=== PATIENT | male | born 1975 | race Caucasian/White ===

== ENCOUNTER 2022-06-16 07:06 | Emergency (ER) | payer BC ==
--- OUTSIDE RECORDS SUMMARY | 2022-06-16 07:09 | XMS REPORT | Continuity of Care Document ---
:1975 Author Organization [facility] t Address [address] [place] [address] Care Team Providers Name Role Phone Lab, [facility] Attending Clinician Unavailable Venkat Perry Attending Clinician VENKAT MILTON Attending Clinician Unavailable Doctor Unassigned, [place] Attending Clinician Unavailable Payers Payer Name Policy Type Policy Number Effective Date Expiration Date S ource Problems This patient has no known problems. Allergies, Adverse Reactions, Alerts Allergy Allergy Status Severity Reaction(s) Onset Inactive Treating Comm ents Source Name Type Date Date Clinician NO KNOWN Drug Active Univers ALLERGIE Class it[facility] of [facility] Social History Social Habit Start Date Stop Date Quantity Comments Source Sex Assigned At Uni versity [facility] Smoking Status Start Date Stop Date Source Unknown if ever smoked Universit y [facility] Medications This patient has no known medications. Procedures Procedure Date / Time Performed Performing Clinician Sour e COVID-19 (PCR 2020-05-11 15:07:00 Venkat Milton [place] MOLECULAR TESTING) Medical [facility] h Encounters Start End Encounter Admission Attending Care Care Encounter Source Date/Time Date/Time Type Type Clinicians Facility Department ID 2020-05-11 2020-05-11 Laboratory Lab, [facility] I [facility] [id number] Univers 10:04:08 12:19:37 Only Venkat Milton [id number] [facility] [id number] Armin as [place] [phone] Id dical [address] Office Building One 2020-05-11 2020-05-11 Outpatient R [facility] [id number] Univers 10:20:00 10:20:00 [id number] [facility]11 2020-05-11 [id number] Univers 10:20:00 10:20:00 VENKAT byarraadriana [facility] 2020-05-11 2020-05-11 Letter Doctor QUYNH [id number] Univers 00:00:00 00:00:00 (Out) Unassigned, DURGA [id number] ity of [place] [facility] [id number] [facility] as [phone] [address] 2020-05-09 2020-05-09 Outpatient Debby MILTON [facility] [id number] Univers 09:20:00 09:20:00 VENKAT haley [facility] Results Test Description Test Time Test Comments Results Result Comments Source COVID-19 (PCR MOLECULAR TESTING) 2020-05-12 06:41:00 Test Item Value Reference Range Interpretation Comme nts SARS-CoV-2 PCR (test code = Not Detected Not Detected 23845-0) JAS (test code = JAS) [facility] [employer] SARS-CoV-2 Assay is a nucleic acid amplification test intended for the qualitative detection of RNA from SARS-CoV-2 from nasopharyngeal ([employer]) specimens. ?It is used under Emergency Use Authorization (EUA) by FDA. A positive result is indicative of the presence of SARS-CoV-2 RNA. ?Clinical correlation with patient history and other diagnostic information is necessary to determine patient infection status. A negative (Not Detected) result does not preclude SARS-CoV-2 infection. ?Clinical correlation with patient history and other diagnostic information should be used in patient management decisions. Invalid: Unable to generate a valid test result on this specimen. ?Please submit a new specimen for repeat testing if clinically indicated. Lab Interpretation (test code = Normal 50200-6) [facility]
[2022-06-16 07:36] LABS: Absolute Lymphocytes (CBC) 2.1 K/uL (0.7-4.9); Hematocrit 49.6 % (39.6-49.0); Lymphocytes % 24.6 % (15.3-44.8); MCV 89.5 fL (80-100); MPV 8.4 fL (7.6-11.3); RBC Red Blood Cell Count 5.54 M/uL (4.33-5.43)
[2022-06-16] MEDS ORDERED: LEVALBUTEROL 1.25 MG/3 ML NEB ONE (07:40)
--- NOTE | 2022-06-16 07:52 | RAD REPORT ---
EXAM DESCRIPTION: Olivier Single View06/16/2022 7:32 am CLINICAL HISTORY: sob COMPARISON: 2010 FINDINGS: The lungs are moderately hyperaerated. The lungs appear clear of acute infiltrate. The heart is normal size IMPRESSION: No acute abnormalities displayed
[2022-06-16] MEDS ORDERED: METHYLPREDNISOLONE 125 MG INJ ONE (08:00)
[2022-06-16 08:34] LABS: Potassium 3.7 mmol/L (3.5-5.1); Troponin High Sensitivity 3.6 pg/mL (<58.9)
[2022-06-16 08:49] LABS: Blood Morphology Comment NOT SEEN (NOT SEEN); Platelet Estimate ADEQ
--- NOTE | 2022-06-16 09:12 | RAD REPORT ---
EXAM DESCRIPTION: CT - Chest For Pe Angio - 06/16/2022 8:49 am CLINICAL HISTORY: sob COMPARISON: None. TECHNIQUE: Dynamically enhanced axial 3 mm thick images of the chest were obtained during administra tion of <100> mL Isovue 370 IV contrast. Coronal and oblique reconstruction images were generated and reviewed. Exam utilizes a protocol for optimal evaluation of pulmonary arterial tree. Maximum intensity projections 3D imaging was utilized All CT scans are performed using dose optimization technique as appropriate and may include automated exposure control or mA/KV adjustment according to patient size. FINDINGS: A pulmonary embolus is not seen. The root of the thoracic aorta has an AP diameter of 3.6 centimeters A pleural effusion is not seen. A pericardial effusion is not seen. A lung consolidation is not present.Blebs are present within the upper lobes. Lungs are hyperaerated IMPRESSION: Negative for a pulmonary embolism. Paraseptal emphysema
--- NOTE | 2022-06-16 09:32 | EDPHYS ---
Physician Documentation [facility] Name: Ron Singh Jr Age: 46 yrs Sex: Male : 1975 Arrival Date: 06/16/2022 Time: 07:13 Bed 5 Private MD: ED Physician Ashkan Bauer HPI: 06/16 07:34 This 46 yrs old Male presents to ER via Wheelchair with complaints of Shortness Of kdr Breath. 07:34 The patient has shortness of breath at rest, with light activity. Onset: The kdr symptoms/episode began/occurred gradually, 2 week(s) ago. Duration: The symptoms are continuous, and are steadily getting worse. The patient's shortness of breath is aggravated by coughing, exertion, light activity, talking, walking. Patient was seen at a local urgent care about 2 weeks ago and put on a Z-Stephen. Since then he is continue to have worsening shortness of breath. He denies fever. He is got a productive cough with clear phlegm. Patient is otherwise nontoxic-appearing at this time. Associated signs and symptoms: The patient has no apparent associated signs or symptoms. Severity of symptoms: At their worst the symptoms were mild moderate in the emergency department the symptoms are unchanged. Historical: - Allergies: 07:17 No Known Allergies; kl - Home Meds: 07:17 None [Active]; kl - PMHx: 07:17 None; kl - PSHx: 07:17 None; kl - Immunization history:: Adult Immunizations up to date, Client reports receiving the 1st dose of the Covid vaccine. - Social history:: Smoking status: Patient reports the use of cigarette tobacco products, smokes one-half pack cigarettes per day. ROS: 07:36 Constitutional: Negative for fever, chills, and weight loss, Eyes: Negative for injury, kdr pain, redness, and discharge, ENT: Negative for injury, pain, and discharge, Neck: Negative for injury, pain, and swelling, Cardiovascular: Negative for chest pain, palpitations, and edema, Abdomen/GI: Negative for abdominal pain, nausea, vomiting, diarrhea, and constipation, Back: Negative for injury and pain, : Negative for injury, bleeding, discharge, and swelling, MS/Extremity: Negative for injury and deformity, Skin: Negative for injury, rash, and discoloration, Neuro: Negative for headache, weakness, numbness, tingling, and seizure activity. Psych: Negative for depression, anxiety, suicide ideation, homicidal ideation, and hallucinations, Allergy/Immunology: Negative for hives, rash, and allergies, Endocrine: Negative for neck swelling, polydipsia, polyuria, polyphagia, and marked weight changes, Hematologic/Lymphatic: Negative for swollen nodes, abnormal bleeding, and unusual bruising. 07:36 Respiratory: Positive for cough, with clear sputum, dyspnea on exertion, shortness of breath, wheezing, Negative for hemoptysis, orthopnea, pleurisy. Exam: 07:36 Constitutional: This is a well developed, well nourished patient who is awake, alert, kdr and in no acute distress. Head/Face: Normocephalic, atraumatic. Eyes: Pupils equal round and reactive to light, extra-ocular motions intact. Lids and lashes normal. Conjunctiva and sclera are non-icteric and not injected. Cornea within normal limits. Periorbital areas with no swelling, redness, or edema. ENT: Nares patent. No nasal discharge, no septal abnormalities noted. Tympanic membranes are normal and external auditory canals are clear. Oropharynx with no redness, swelling, or masses, exudates, or evidence of obstruction, uvula midline. Mucous membranes moist. Neck: Trachea midline, no thyromegaly or masses palpated, and no cervical lymphadenopathy. Supple, full range of motion without nuchal rigidity, or vertebral point tenderness. No Meningismus. Chest/axilla: Normal chest wall appearance and motion. Nontender with no deformity. No lesions are appreciated. Cardiovascular: Regular rate and rhythm with a normal S1 and S2. No gallops, murmurs, or rubs. Normal PMI, no JVD. No pulse deficits. Abdomen/GI: Soft, non-tender, with normal bowel sounds. No distension or tympany. No guarding or rebound. No evidence of tenderness throughout. Back: No spinal tenderness. No costovertebral tenderness. Full range of motion. Skin: Warm, dry with normal turgor. Normal color with no rashes, no lesions, and no evidence of cellulitis. MS/ Extremity: Pulses equal, no cyanosis. Neurovascular intact. Full, normal range of motion. Neuro: Awake and alert, GCS 15, oriented to person, place, time, and situation. Cranial nerves II-XII grossly intact. Motor strength 5/5 in all extremities. Sensory grossly intact. Cerebellar exam normal. Normal gait. Psych: Awake, alert, with orientation to person, place and time. Behavior, mood, and affect are within normal limits. 07:36 Respiratory: the patient does not display signs of respiratory distress, Respirations: normal, no acute changes, that is moderate is noted, Breath sounds: rhonchi, stridor, is not appreciated, + upper airway congestion. wheezing: that is mild. 07:38 ECG was reviewed by the Attending Physician. kdr Vital Signs: 07:15 BP 143 / 91; Pulse 100; Resp 22; Temp 98.2(TE); Pulse Ox 84% on R/A; Weight 72.57 kg kl (R); Height 5 ft. 4 in. (162.56 cm); Pain 0/10; 07:44 BP 114 / 90; Pulse 92; Resp 28; Temp 98.6; Pulse Ox 94% on 4 lpm NC; tp1 09:03 BP 115 / 77; Pulse 81; Resp 19; Pulse Ox 98% on 2 lpm NC; tp1 07:15 Body Mass Index 27.46 (72.57 kg, 162.56 cm) kl MDM: 09:32 Patient medically screened. kdr 09:59 Data reviewed: vital signs, nurses notes, lab test result(s), radiologic studies. kdr Counseling: I had a detailed discussion with the patient and/or guardian regarding: the historical points, exam findings, and any diagnostic results supporting the discharge/admit diagnosis, lab results, radiology results, the need for outpatient follow up. 06/16 07:15 Order name: Basic Metabolic Panel; Complete Time: 09:13 kdr 06/16 07:15 Order name: CBC with Diff; Complete Time: 09:13 kdr 06/16 07:15 Order name: Troponin HS; Complete Time: 09:13 kdr 06/16 07:15 Order name: XRAY Chest (1 view); Complete Time: 08:20 kdr 06/16 07:44 Order name: Manual Differential; Complete Time: 09:13 EDMS 06/16 07:45 Order name: SARS-COV-2 RT PCR (Document "Date of Onset" if Symptomatic); Complete Time: vg1 09:06/16 07:15 Order name: EKG; Complete Time: 07:16 kdr 06/16 07:15 Order name: Cardiac monitoring; Complete Time: 07:34 kdr 06/16 07:15 Order name: EKG - Nurse/Tech; Complete Time: 07:38 kdr 06/16 07:15 Order name: IV Saline Lock; Complete Time: 07:34 kdr 06/16 07:15 Order name: Labs collected and sent; Complete Time: 07:35 kdr 06/16 08:22 Order name: CT Chest For PE Angio; Complete Time: 09:25 kdr 06/16 07:15 Order name: O2 Per Protocol; Complete Time: 07:34 kdr 06/16 07:15 Order name: O2 Sat Monitoring; Complete Time: 07:34 kdr 06/16 07:42 Order name: Labs - recollect needed: recollect chemistries; Complete Time: 08:03 eb 06/16 09:26 Order name: Misc. Order: Remove oxygen and ambulate patient at recording vital signs kdr and lowest oxygen saturation ; Complete Time: 09:33 EC:38 Rate is 90 beats/min. Rhythm is regular, Sinus Rhythm with No ectopy. QRS [place] is kdr Normal. NH interval is normal. QRS interval is normal. QT interval is normal. Clinical impression: NSR w/ Non-specific ST/T Changes. Administered Medications: 07:34 Drug: Xopenex (levalbuterol) (3) 1.25 mg Route: Inhalation; tp1 08:05 Follow up: Response: Marked relief of symptoms tp1 07:50 Drug: SOLU-Medrol (methylPrednisoLONE) 125 mg Route: IVP; Site: right forearm; tp1 09:06 Follow up: Response: No adverse reaction tp1 Disposition Summary: 06/16/22 09:32 Discharge Ordered Location: Home kdr Problem: new kdr Symptoms: have improved kdr Condition: Stable kdr Diagnosis - Emphysema, unspecified kdr - Shortness of breath kdr Followup: kdr - With: Private Physician - When: 2 - 3 days - Reason: If symptoms return, Further diagnostic work-up, Recheck today's complaints, Continuance of care, Re-evaluation by your physician Discharge Instructions: - Discharge Summary Sheet kdr - Chronic Obstructive Pulmonary Disease kdr - How to Use a Metered Dose Inhaler kdr - Shortness of Breath, Adult, [id number] kdr - Cough, Adult, [id number] kdr Forms: - Medication Reconciliation Form kdr - Thank You Letter kdr Prescriptions: - albuterol sulfate 90 mcg/actuation Inhalation HFA aerosol inhaler - inhale 2 puff by INHALATION route every 4 hours As needed; 2 Cartridge; kdr Refills: 0, Product Selection Permitted - Tessalon Perles 100 mg Oral Capsule - take 1 capsule by ORAL route every 8 hours As needed; 15 capsule; Refills: 0, kdr Product Selection Permitted - Medrol (Stephen) 4 mg Oral Tablets, Dose Pack - take 1 tablet by ORAL route as directed - follow package instructions; 1 kdr packet; Refills: 0, Product Selection Permitted Signatures: Dispatcher [employer] Irene Olson RN RN kl Ashkan Bauer MD MD kdr Botello, Elizabeth eb Parker, Tiffany, RN RN tp1
--- NOTE | 2022-06-16 09:32 | ER ---
Nurse's Notes [facility] Name: Ron Singh Jr Age: 46 yrs Sex: Male : 1975 Arrival Date: 06/16/2022 Time: 07:13 Bed 5 Private MD: Diagnosis: Emphysema, unspecified;Shortness of breath Presentation: 06/16 07:15 Chief complaint: Patient states: I have been having a cough and shortness of breath for kl about two weeks. I went to urgent care and they gave me an inhaler but it isnt working. Coronavirus screen: Client presents with at least one sign or symptom that may indicate coronavirus-19. The client reports previous COVID testing was negative. Date of collection: June 01, 2022. Ebola Screen: No symptoms or risks identified at this time. Initial Sepsis Screen: Does the patient meet any 2 criteria? RR > 20 per min. HR > 90 bpm. Does the patient have a suspected source of infection? No. Patient's initial sepsis screen is negative. Risk Assessment: Do you want to hurt yourself or someone else? Patient reports no desire to harm self or others. Onset of symptoms was June 01, 2022. 07:15 Method Of Arrival: Wheelchair 07:15 Acuity: KUMAR 3 kl Triage Assessment: 07:17 General: Appears in no apparent distress. uncomfortable, Behavior is calm, cooperative, kl appropriate for age. Pain: Denies pain. EENT: No deficits noted. No signs and/or symptoms were reported regarding the EENT system. Neuro: No deficits noted. Cardiovascular: Chest pain is denied. Respiratory: Reports shortness of breath at rest on exertion cough that is productive, Airway is patent Respiratory effort is even, unlabored, Respiratory pattern is tachypnea Breath sounds are clear bilaterally. the patient has moderate shortness of breath. GI: No deficits noted. No signs and/or symptoms were reported involving the gastrointestinal system. : No deficits noted. No signs and/or symptoms were reported regarding the genitourinary system. Derm: No deficits noted. No signs and/or symptoms reported regarding the dermatologic system. Musculoskeletal: No deficits noted. No signs and/or symptoms reported regarding the musculoskeletal system. Historical: - Allergies: 07:17 No Known Allergies; kl - Home Meds: 07:17 None [Active]; kl - PMHx: 07:17 None; kl - PSHx: 07:17 None; kl - Immunization history:: Adult Immunizations up to date, Client reports receiving the 1st dose of the Covid vaccine. - Social history:: Smoking status: Patient reports the use of cigarette tobacco products, smokes one-half pack cigarettes per day. Screenin:45 Abuse screen: Denies threats or abuse. Denies injuries from another. Nutritional tp1 screening: No deficits noted. Tuberculosis screening: No symptoms or risk factors identified. Fall Risk No fall in past 12 months (0 pts). No secondary diagnosis (0 pts). IV access (20 points). Ambulatory Aid- None/Bed Rest/Nurse Assist (0 pts). Gait- Normal/Bed Rest/Wheelchair (0 pts) Mental Status- Oriented to own ability (0 pts). Total Cardenas Fall Scale indicates No Risk (0-24 pts). Assessment: 07:15 General: Appears in no apparent distress. comfortable, Behavior is calm, cooperative, tp1 On 2L O2 via NC \\T\\ 88%, O2 increased to 4L via NC \\T\\ 91%. Pain: Denies pain. Neuro: Level of Consciousness is awake, alert, obeys commands, Oriented to person, place, time, situation. Cardiovascular: Denies chest pain, Capillary refill < 3 seconds in bilateral fingers Patient's skin is warm and dry. Respiratory: Reports shortness of breath at rest cough that is productive, Airway is patent Respiratory effort is even, unlabored, Breath sounds with wheezes bilaterally. Onset: The symptoms/episode began/occurred two weeks ago. GI: Abdomen is flat, non-distended, Patient currently denies nausea, vomiting. : No signs and/or symptoms were reported regarding the genitourinary system. EENT: No signs and/or symptoms were reported regarding the EENT system. Derm: Skin is pink, warm \\T\\ dry. Musculoskeletal: Circulation, motion, and sensation intact. 08:02 Reassessment:. Reassessment: O2 currently \\T\\ 98%, O2 decreased to 2L via NC, O2 \\T\\ 96%, tp 1 RR 24. Respiratory: Respiratory effort is even, unlabored. 08:13 Reassessment: O2 currently \\T\\ 91% on 2L via NC, RR 15. tp1 08:40 Reassessment: Patient appears in no apparent distress at this time. Patient and/or tp1 family updated on plan of care and expected duration. Pain level reassessed. Patient is alert, oriented x 3, equal unlabored respirations, skin warm/dry/pink. 08:41 Reassessment: escorted to CT via wheelchair by [employer]. tp1 08:54 Reassessment: returned from CT. tp1 09:00 Reassessment: states "feeling much better". Respiratory: Respiratory effort is even, tp1 unlabored, Breath sounds are clear bilaterally. Denies shortness of breath. 09:31 Reassessment: received VO from DR. Bauer to ambulate PT to check status of SOB. PT tp1 ambulated down douglas and denied SOB. O2 \\T\\ 91% RA, HR 99. Vital Signs: 07:15 BP 143 / 91; Pulse 100; Resp 22; Temp 98.2(TE); Pulse Ox 84% on R/A; Weight 72.57 kg kl (R); Height 5 ft. 4 in. (162.56 cm); Pain 0/10; 07:44 BP 114 / 90; Pulse 92; Resp 28; Temp 98.6; Pulse Ox 94% on 4 lpm NC; tp1 09:03 BP 115 / 77; Pulse 81; Resp 19; Pulse Ox 98% on 2 lpm NC; tp1 07:15 Body Mass Index 27.46 (72.57 kg, 162.56 cm) ED Course: 07:13 Patient arrived in ED. tp1 07:14 Ashkan Bauer MD is Attending Physician. kdr 07:17 Triage completed. kl 07:17 Arm band placed on right wrist. kl 07:18 Patient has correct armband on for positive identification. Placed in gown. Bed in low tp1 position. Call light in reach. Client placed on continuous cardiac and pulse oximetry monitoring. NIBP monitoring applied. Warm blanket given. 07:27 Inserted saline lock: 20 gauge in right forearm, using aseptic technique. Blood tp1 collected. 07:33 XRAY Chest (1 view) In Process Unspecified. EDMS 07:34 Lucía Card, RN is Primary Nurse. tp1 07:40 EKG done, by ED staff. tp1 08:51 CT Chest For PE Angio In Process Unspecified. EDMS 09:06 No provider procedures requiring assistance completed. tp1 09:57 IV discontinued, intact, bleeding controlled, No redness/swelling at site. Pressure tp1 dressing applied. Administered Medications: 07:34 Drug: Xopenex (levalbuterol) (3) 1.25 mg Route: Inhalation; tp1 08:05 Follow up: Response: Marked relief of symptoms tp1 07:50 Drug: SOLU-Medrol (methylPrednisoLONE) 125 mg Route: IVP; Site: right forearm; tp1 09:06 Follow up: Response: No adverse reaction tp1 Medication: 07:44 VIS not applicable for this client. tp1 Outcome: 09:32 Discharge ordered by . kdr 09:57 Discharged to home ambulatory. tp1 09:57 Condition: good 09:57 Discharge instructions given to patient, Instructed on discharge instructions, follow up and referral plans. medication usage, Demonstrated understanding of instructions, follow-up care, medications, Prescriptions given X 3. 09:58 Patient left the ED. tp1 Signatures: Dispatcher [employer] EDMS Irene Mann RN RN kl Rittger, Kevin, MD MD kdr Parker, Tiffany, RN RN tp1 Corrections: (The following items were deleted from the chart) :44 07:35 General: Appears in no apparent distress. comfortable, Behavior is calm, tp1 cooperative, tp1 :44 07:35 Pain: Denies pain. tp1 tp1 :44 07:35 Neuro: Level of Consciousness is awake, alert, obeys commands, Oriented to tp1 person, place, time, situation, tp1 :44 07:35 Cardiovascular: Denies chest pain, Capillary refill < 3 seconds in bilateral tp1 fingers Patient's skin is warm and dry. tp1 :44 07:35 Respiratory: Reports shortness of breath at rest cough that is productive, Airway tp1 is patent Respiratory effort is even, unlabored, Breath sounds with wheezes bilaterally. Onset: The symptoms/episode began/occurred two weeks ago, tp1 :44 07:35 GI: Abdomen is flat, non-distended, Patient currently denies nausea, vomiting, tp1tp1 :44 07:35 : No signs and/or symptoms were reported regarding the genitourinary system. tp1tp1 :44 07:35 EENT: No signs and/or symptoms were reported regarding the EENT system. tp1 tp1 07:35 Derm: Skin is pink, warm \\T\\ dry. tp1 tp1 44 07:35 Musculoskeletal: Circulation, motion, and sensation intact. tp1 tp1 08:13 08:02 Reassessment: O2 98%, O2 decreased to 2L via NC O2 96%, RR 24 tp1 tp1
[2022-06-16 10:30] VITALS: TEMP 98.6
[2022-06-16 10:32] VITALS: BP 115/77; O2SAT 98
--- NOTE | 2022-06-17 14:33 | EKG ---
Test Date: 2022-06-16 Test Time: 07:38:05 Nut Packer: GUS MEASUREMENT RESULTS: Intervals: Rate: 90 FL: 166 QRSD: 92 QT: 346 QTc: 423 [place]: P: 78 FL: 166 QRS: 83 T: 77 INTERPRETIVE STATEMENTS: Normal sinus rhythm Right atrial enlargement Borderline ECG No previous ECG available for comparison Electronically Signed On 06-17-22 14:30:47 CDT by Cyrus Simental
== END 2022-06-16 09:58 | disposition home or self-care (01) ==
LOC: ER 07:06
DX: J43.9 Emphysema, unspecified (principal); F17.210 Nicotine dependence, cigarettes, uncomplicated; Z20.822 Contact with and (suspected) exposure to COVID-19
CPT/HCPCS: 93005; 85025; 80048; 36415; 84484; 71275; 71045; 96374; 99284; U0003; Q9967; J7614; J2930

== ENCOUNTER 2024-03-27 17:06 | Emergency (ER) | payer BC ==
--- OUTSIDE RECORDS SUMMARY | 2024-03-27 17:09 | XMS REPORT | Continuity of Care Document ---
Author Name Unknown Address [address] [facility] [address] [id number] [facility] thconnect Address [address] [facility] [place] [address] Care Team Providers Care Track Supervisor Name Role Phone Lab, Adc Fam Pob I Attending Clinician Unavailab Venkat Goodson Attending Clinician VENKAT BARTLETT Attending Clinician Unavailable Doctor Unassigned, [place] Attending Clinician U navailable Payers Payer Name Policy Type Policy Number Effective Date Expirati on Date Source Allergies, Adverse Reactions, Alerts Allergy Name Allergy Type Status Severity Reaction(s) Onset Date Inactive Date Treating Clinician Comments Source NO KNOWN ALLERGIE S Drug Class Active [facility] Social History Social Habit Start Date Stop Date Quantity Comments Source Sex Assigned At [facility] Smoking Status Start Date Stop Date Source Unknown if ever smoked [facility] Procedures Procedure Date / Time Performed Performing Clinicia n Source COVID-19 (PCR MOLECULAR TESTING) 2020-05-11 15:07:00 Venkat Bartlett [facility] Encounters Start Date/Time End Date/Time Encounter Type Admission Type Attending Clinicians Care Facility Care Department Encounter ID Source 2020-05-11 10:04:08 2020-05-11 12:19:37 Laboratory Only Lab, Adc Fam Pob I Venkat Bartlett [facility] [id number] [facility] 2020-05-11 10:20:00 2020-05-11 10:20:00 Outpatient R VENKAT BARTLETT [facility] [id number] [facility] 2020-05-11 00:00:00 2020-05-11 00:00:00 Letter (Out) Doctor Unassigned, [place] [facility] [id number] [facility] 2020-05-09 09:20:00 2020-05-09 09:20:00 Outpatient VENKAT TRAVIS [facility] [id number] [facility] Results Test Description Test Time Test Comments Results Result Co mments Source [facility]
[2024-03-27] MEDS ORDERED: TDAP (DIPHTH,PERTUSS(ACELL),TET VAC) 0.5 ML VIAL IMVAC ONE (17:44)
--- NOTE | 2024-03-27 17:49 | EDPHYS ---
Physician Documentation [facility] Name: Ron Singh Jr Age: 48 yrs Sex: Male : 1975 Arrival Date: 03/27/2024 Time: 17:06 Bed 12 Private MD: ED Physician Koko Conte HPI: 03/27 17:51 This 48 yrs old Male presents to ER via Ambulatory with complaints of Laceration To kb Hand. 17:51 Pt is a 48 year old male who accidentally cut the first web spacing of left hand on an kb ehsan wrench at 1030 this morning. . Historical: - Allergies: 17:23 No Known Allergies; hb - PMHx: 17:23 None; hb - PSHx: 17:23 Hernia Repair; hb - Immunization history:: Adult Immunizations up to date. - Infectious Disease History:: Denies. - Social history:: Smoking status: Patient reports the use of cigarette tobacco products, smokes one pack cigarettes per day. ROS: 17:49 Constitutional: As per HPI kb Exam: 17:49 Constitutional: This is a well developed, well nourished patient who is awake, alert, kb and in no acute distress. Head/Face: Normocephalic, atraumatic. ENT: Moist Mucous membranes Cardiovascular: Regular rate Respiratory: Respirations even and unlabored. No increased work of breathing. Talking in full sentences MS/ Extremity: Pulses equal, no cyanosis. Neurovascular intact. Full, normal range of motion. Neuro: Awake and alert, GCS 15, oriented to person, place, time, and situation. Moves all extremities. Normal gait. 17:49 Skin: injury, laceration(s), the wound is approximately 1 cm(s), of the Left first web space, that can be described as clean, no foreign body, irregular, without bleeding, Vital Signs: 17:22 BP 124 / 83; Pulse 78; Resp 16; Temp 97.1; Pulse Ox 100% ; Weight 71.67 kg; Height 6 hb ft. 4 in. ; Pain 0/10; 18:25 BP 129 / 78; Pulse 78; Resp 18; Temp 99; Pulse Ox 97% ; Pain 0/10; kb3 17:22 Body Mass Index 19.23 (71.67 kg, 193.04 cm) hb 17:22 Pain Scale: Adult hb 18:25 Pain Scale: Adult kb3 Laceration: 17:50 Wound Repair of 1cm ( 0.4in ) subcutaneous laceration to Left first web space. kb Irregularly shaped.. Skin/tissue flap noted.. Distal neuro/vascular/tendon intact. Anesthesia: Wound infiltrated with 1 mls of 1% lidocaine. Wound prep: Extensive cleansing with hibiclenz by me, Wound irrigation with saline by me. Skin closed with 2 4-0 Prolene using simple sutures and sterile technique. Patient tolerated well. MDM: 17:12 Patient medically screened. kb 17:50 Differential diagnosis: superficial laceration, tendon injury, vascular injury. Data kb reviewed: vital signs, nurses notes. Test considered but Not performed: X-ray: hand xray considered but pt has full ROM without pain, laceration is superficial. Counseling: I had a detailed discussion with the patient and/or guardian regarding the historical points, exam findings, and any diagnostic results supporting the discharge/admit diagnosis, the need for outpatient follow up, a family practitioner, to return to the emergency department if symptoms worsen or persist or if there are any questions or concerns that arise at home. 03/27 17:17 Order name: Dressing - Wound; Complete Time: 17:27 kb 03/27 17:17 Order name: Gloves, Sterile; Complete Time: 17:27 kb 03/27 17:17 Order name: Prolene, Sutures; Complete Time: 17:27 kb 03/27 17:17 Order name: Setup Suture Tray; Complete Time: 17:27 kb Administered Medications: 17:27 Drug: Lidocaine Infiltration (1 %) 1 vials 5 ml Infiltration once; to bedside Volume: 5 bp ml; Route: Infiltration; 18:14 Follow up: Response: No adverse reaction; Pain is decreased kb3 18:14 Drug: Boostrix Tdap IM 0.5 ml IM once; as a single dose Route: IM; Site: left deltoid; kb3 18:14 Follow up: Response: No adverse reaction kb3 Disposition Summary: 03/27/24 17:49 Discharge Ordered Notes: Location: Home kb Condition: Stable kb Diagnosis - Laceration without foreign body of left hand kb Followup: kb - With: Emergency Department - When: As needed - Reason: Worsening of condition Followup: kb - With: Private Physician - When: 2 - 3 days - Reason: Recheck today's complaints, Continuance of care, Re-evaluation by your physician Discharge Instructions: - Discharge Summary Sheet kb - Laceration Care, Adult, [id number] kb Forms: - Work release form kb - Medication Reconciliation Form kb - Antibiotic Education kb - Prescription Opioid Use kb - Patient Portal Instructions kb - Leadership Thank You Letter kb Addendum: 03/29/2024 14:18 I was immediately available for consultation during this patient's visit. I did not e c2 personally see the patient or discuss the patient with the BRENNEN. . Signatures: Iliana Shukla, DRIER AND EVAPORATOR OPERATOR-C DRIER AND EVAPORATOR OPERATOR-Ckb Bibi Bell, RN RN Leon Ferguson RN RN bp Jo Reyna RN RN kb3 Koko Conte MD MD ec2
--- NOTE | 2024-03-27 17:49 | ER ---
Nurse's Notes [facility] Name: Ron Singh Jr Age: 48 yrs Sex: Male : 1975 Arrival Date: 03/27/2024 Time: 17:06 Bed 12 Private MD: Diagnosis: Laceration without foreign body of left hand Presentation: 03/27 17:22 Chief complaint: Puncture to base of left thumb from ehsan wrench this morning. Not hb bleeding. Coronavirus screen: At this time, the client does not indicate any symptoms associated with coronavirus-19. Ebola Screen: No symptoms or risks identified at this time. Complicating Factors: There are no complicating factors for this patient. Initial Sepsis Screen: Does the patient meet any 2 criteria? No. Patient's initial sepsis screen is negative. Does the patient have a suspected source of infection? No. Patient's initial sepsis screen is negative. Risk Assessment: Do you want to hurt yourself or someone else? Patient reports no desire to harm self or others. Onset of symptoms was March 27, 2024. 17:22 Method Of Arrival: Ambulatory hb 17:22 Acuity: KUMAR 4 hb Triage Assessment: 17:23 General: Appears in no apparent distress. Behavior is calm, cooperative. Pain: Pain hb currently is 0 out of 10 on a pain scale. Neuro: Level of Consciousness is awake, alert, obeys commands, Oriented to person, place, time, situation. Cardiovascular: Patient's skin is warm and dry. Respiratory: Respiratory effort is even, unlabored, Respiratory pattern is regular, symmetrical. Injury Description: Puncture sustained to Left first web space was sustained 6-12 hours ago. Historical: - Allergies: 17:23 No Known Allergies; hb - PMHx: 17:23 None; hb - PSHx: 17:23 Hernia Repair; hb - Immunization history:: Adult Immunizations up to date. - Infectious Disease History:: Denies. - Social history:: Smoking status: Patient reports the use of cigarette tobacco products, smokes one pack cigarettes per day. Screenin:30 [facility] ED Fall Risk Assessment (Adult) History of falling in the last 3 months, kb3 including since admission No falls in past 3 months (0 pts) Confusion or Disorientation No (0 pts) Intoxicated or Sedated No (0 pts) Impaired Gait No (0 pts) Mobility Assist Device Used No (0 pt) Altered Elimination No (0 pt) Score/Fall Risk Level 0 - 2 = Low Risk Oriented to surroundings. Abuse screen: Denies threats or abuse. Denies injuries from another. Nutritional screening: No deficits noted. Tuberculosis screening: No symptoms or risk factors identified. Assessment: 17:30 General: Appears in no apparent distress. Behavior is calm, cooperative. Pain: Denies kb3 pain. Injury Description: Laceration sustained to Left first web space is clean, 0.5 to 2.5 cm long, not bleeding. Vital Signs: 17:22 BP 124 / 83; Pulse 78; Resp 16; Temp 97.1; Pulse Ox 100% ; Weight 71.67 kg; Height 6 hb ft. 4 in. ; Pain 0/10; 18:25 BP 129 / 78; Pulse 78; Resp 18; Temp 99; Pulse Ox 97% ; Pain 0/10; kb3 17:22 Body Mass Index 19.23 (71.67 kg, 193.04 cm) hb 17:22 Pain Scale: Adult hb 18:25 Pain Scale: Adult kb3 ED Course: 17:08 Patient arrived in ED. rg4 17:12 Iliana Shukla FNP-C [facility] kb 17:12 Koko Conte MD is Attending Physician. kb 17:23 Triage completed. hb 17:25 Arm band placed on. hb 17:30 Patient has correct armband on for positive identification. Bed in low position. kb3 Provided Education on: Plan of care. 17:30 Patient did not have IV access during this emergency room visit. kb3 17:45 Assist provider with laceration repair on left hand that was 2.5 cm. or less using kb3 sutures. Set up tray. Performed by Iliana IBARRA Patient tolerated well. Administered Medications: 17:27 Drug: Lidocaine Infiltration (1 %) 1 vials 5 ml Infiltration once; to bedside Volume: 5 bp ml; Route: Infiltration; 18:14 Follow up: Response: No adverse reaction; Pain is decreased kb3 18:14 Drug: Boostrix Tdap IM 0.5 ml IM once; as a single dose Route: IM; Site: left deltoid; kb3 18:14 Follow up: Response: No adverse reaction kb3 Medication: 17:30 Vaccine Information Statement (VIS) provided today. Questions and/or concerns kb3 addressed. VIS edition date: March 12, 2021. Outcome: 17:49 Discharge ordered by . kb 18:15 Discharged to home ambulatory, kb3 18:15 Condition: improved kb3 18:15 Discharge instructions given to patient, family, Instructed on discharge instructions, follow up and referral plans. medication usage, wound care, Demonstrated understanding of instructions, follow-up care, medications, wound care, 18:25 Patient left the ED. kb3 Signatures: Iliana Shukla FNP-C FNP-Ckb Baxter, Heather, RN RN Sofie Mism rg4 Leon Ferguson RN RN bp Jo Reyna RN RN kb3 Corrections: (The following items were deleted from the chart) 18:22 18:21 General: Appears in no apparent distress. Behavior is calm, cooperative, kb3 kb3 18:22 18:21 Pain: Denies pain. kb3 kb3 18:22 18:21 Injury Description: Laceration sustained to Left first web space is clean, 0.5 to kb3 2.5 cm long, not bleeding, kb3 18:24 17:30 Assist provider with laceration repair on left hand that was 2.5 cm. or less kb3 using sutures. Set up tray. Performed by Iliana IBARRA Patient tolerated well. kb3
[2024-03-27 19:06] VITALS: BP 129/78; TEMP 99; O2SAT 97
== END 2024-03-27 18:25 | disposition home or self-care (01) ==
LOC: ER 17:06
PROC: 0HQGXZZ Repair Left Hand Skin, External Approach (ICD-10-PCS; principal; 2024-03-27)
DX: S61.412A Laceration without foreign body of left hand, initial encounter (principal)
CPT/HCPCS: 96372; 99284